=== PATIENT | male | born 1955 | race African-American/Black ===

== ENCOUNTER → 2021-06-21 | Day surgery (SDC) | payer MEDICAID ==
[~2021-06-21] VITALS: Ht 191.8 cm; Wt 128.8 kg
[~2021-06-21] MED LIST: BUPIVACAINE HCL/PF 0.5% (5MG/ML) 10ML ONE; BUPR100S SQ; LACTATED RINGERS 1,000 ML IV SCH; SKIN ADHESIVE 0.7 GM EA TOP ONE
[2021-06-21 06:31] LABS: *AMPHETAMINES SCREEN URINE NEGATIVE (NEGATIVE); *BARBITURATES SCREEN URINE NEGATIVE (NEGATIVE); *BENZODIAZEPINES SCREEN URINE NEGATIVE (NEGATIVE); *COCAINE SCREEN URINE PRESUMTIVE POSITIVE (NEGATIVE); CANNABINOID URINE SCREEN NEGATIVE (NEGATIVE); METHADONE URINE SCREEN NEGATIVE (NEGATIVE); OPIATES URINE SCREEN NEGATIVE (NEGATIVE); PHENCYCLIDINE URINE SCREEN NEGATIVE (NEGATIVE)
== END | disposition home or self-care (01) ==
LOC: OR 05:46
PROVIDERS: ATTEND Surgery
DX: K40.31 Unilateral inguinal hernia, with obstruction, without gangrene, recurrent (principal); Z53.8 Procedure and treatment not carried out for other reasons; Z20.822 Contact with and (suspected) exposure to COVID-19; Z79.899 Other long term (current) drug therapy; Z98.890 Other specified postprocedural states
CPT/HCPCS: 80305; 87426; C9803; J3490

== ENCOUNTER → 2021-07-19 | Day surgery (SDC) | payer MEDICAID ==
[~2021-07-19] VITALS: Ht 191.8 cm; Wt 128.8 kg
[~2021-07-19] MED LIST changes: +BUPIVACAINE HCL 0.5% (5MG/ML) 50ML ONE; +BUPIVACAINE HCL IR NR; -BUPIVACAINE HCL/PF 0.5% (5MG/ML) 10ML ONE; +BUPIVACAINE HCL/PF 0.5% (5MG/ML) 30ML ONE; +CEFAZOLIN SODIUM 1000MG/VIAL ONE; +FENTANYL CITRATE/PF 50MCG/ML 2ML VIAL IV PRN; +FENTANYL CITRATE/PF 50MCG/ML 2ML VIAL ONE; +GLYCOPYRROLATE 0.2 MG/ML 2ML VIAL ONE; +HYDROCODONE/ACETAMINOPHEN 5/325MG TABLET PO PRN; +KETOROLAC 30MG/ML VIAL ONE; +LIDOCAINE HCL 1% 50ML VIAL (10MG/ML) ONE; +MIDAZOLAM HCL 2 MG/2 ML VIAL ONE; +ONDANSETRON HCL 4MG/2ML INJ IV PRN; +ONDANSETRON HCL 4MG/2ML INJ ONE; +POLYMYXIN B SULFATE 500000 UNITS/VIAL ONE; +PROPOFOL 200MG/20ML VIAL IV ONE; +[UNRECOGNIZED DRUG - OTHER] IR NR
[2021-07-19 06:49] LABS: *AMPHETAMINES SCREEN URINE NEGATIVE (NEGATIVE); *BARBITURATES SCREEN URINE NEGATIVE (NEGATIVE); *BENZODIAZEPINES SCREEN URINE NEGATIVE (NEGATIVE); *COCAINE SCREEN URINE NEGATIVE (NEGATIVE); CANNABINOID URINE SCREEN NEGATIVE (NEGATIVE); METHADONE URINE SCREEN NEGATIVE (NEGATIVE); OPIATES URINE SCREEN NEGATIVE (NEGATIVE); PHENCYCLIDINE URINE SCREEN NEGATIVE (NEGATIVE)
[2021-07-19 11:15] VITALS: BP 147/82
== END | disposition home or self-care (01) ==
LOC: OR 06:09
PROVIDERS: ATTEND Surgery
DX: K40.90 Unilateral inguinal hernia, without obstruction or gangrene, not specified as recurrent (principal); Z79.899 Other long term (current) drug therapy; Z98.890 Other specified postprocedural states; Z20.822 Contact with and (suspected) exposure to COVID-19
CPT/HCPCS: 49505; 80305; 87426; C1781; C9803; J0690; J1885; J2250; J2405; J2704; J3010; J3490